=== PATIENT | female | born 1955 | race Asian ===

== ENCOUNTER 2018-10-04 06:25 | Day surgery (SDC) | payer OTHER ==
[~2018-10-04] VITALS: Ht 154.9 cm; Wt 65.8 kg
[2018-10-04 07:12] VITALS: BP 146/77
[2018-10-04 10:09] VITALS: BP 137/54
== END 2018-10-04 09:55 | disposition home or self-care (01) ==
LOC: DS 06:25 → OR 07:30 → GI 07:30 → DS 09:55
PROVIDERS: Internal Medicine Gastroenterology
PROC: 0DB68ZX Excision of Stomach, Via Natural or Artificial Opening Endoscopic, Diagnostic (ICD-10-PCS; principal; 2018-10-04 07:30)
PROC: 0DJD8ZZ Inspection of Lower Intestinal Tract, Via Natural or Artificial Opening Endoscopic (ICD-10-PCS; 2018-10-04 07:30)
DX: K29.60 Other gastritis without bleeding (principal); K31.7 Polyp of stomach and duodenum; K57.30 Diverticulosis of large intestine without perforation or abscess without bleeding; Z79.899 Other long term (current) drug therapy; Z12.11 Encounter for screening for malignant neoplasm of colon; Z68.26 Body mass index [BMI] 26.0-26.9, adult
CPT/HCPCS: 43235; 45378; G0500; J1610; J2250; J2310; J3010; J3490